=== PATIENT | female | born 1970 | race Caucasian/White ===

== ENCOUNTER 2021-08-12 08:54 | Emergency (ER) | payer SELFPAY ==
[~2021-08-12] VITALS: Ht 180.3 cm; Wt 97.7 kg
[2021-08-12] MEDS ORDERED: NAPROXEN500 MG PO (10:40)
[2021-08-12 11:12] VITALS: BP 117/60
== END 2021-08-12 11:09 | disposition home or self-care (01) | DRG 563 ==
LOC: ED 08:54
DX: S83.91XA Sprain of unspecified site of right knee, initial encounter (principal); X58.XXXA Exposure to other specified factors, initial encounter
CPT/HCPCS: L1830